=== PATIENT | female | born 1945 | race Caucasian/White ===

== ENCOUNTER 2017-02-17 08:35 | Day surgery (SDC) | payer OTHER ==
[~2017-02-17] VITALS: Ht 167.6 cm; Wt 83.5 kg
[2017-02-17] MEDS ORDERED: POLYMYXIN 500,000/BACIT.10,000 UNITS in NS IRR 1 L IR ONE (10:54)
[2017-02-17] MEDS ORDERED: LR 1,000 ML IV.SOLN IV ONE ×2 (11:35→12:07)
[2017-02-17] MEDS ORDERED: SEVOFLURANE 15 MIN GAS INH ONE ×2 (11:35→12:07)
[2017-02-17] MEDS ORDERED: MIDAZOLAM HCL 5 MG/5 ML VIAL IVP ONE ×2 (11:35→12:07)
[2017-02-17] MEDS ORDERED: fentaNYL CITRATE/PF 100 MCG/2 ML AMP IVP ONE ×2 (11:35→12:07)
[2017-02-17] MEDS ORDERED: PROPOFOL 200MG/ 20ML VIAL (DIPRIVAN) IV ONE ×2 (11:35→12:07)
[2017-02-17] MEDS ORDERED: KETOROLAC TROMETHAMINE 30 MG VIAL IVP ONE ×2 (11:35→12:07)
[2017-02-17] MEDS ORDERED: CEFAZOLIN 2 GM IVPB PREMIX 50 ML IV ONE ×2 (11:35→12:07)
[2017-02-17] MEDS ORDERED: NS 1000 ML BAG IV ONE (12:07)
[2017-02-17] MEDS ORDERED: METOCLOPRAMIDE HCL 10 MG/2 ML VIAL IVP ONE (12:07)
[2017-02-17] MEDS ORDERED: DEXAMETHASONE SOD PHOSPHATE 4 MG/ML VIAL IVP ONE (12:07)
[2017-02-17] MEDS ORDERED: LR 1,000 ML IV SCH (12:18)
[2017-02-17] MEDS ORDERED: HYDROmorphone 2 MG/ML VIAL IVP PRN ×2 (12:30)
[2017-02-17] MEDS ORDERED: HYDROmorphone 1 MG INJ. 1 MG/ML AMPUL IVP PRN (12:30)
[2017-02-17] MEDS ORDERED: MEPERIDINE HCL/PF 25 MG/ML DISP.SYRIN IVP PRN ×2 (12:30)
[2017-02-17] MEDS ORDERED: ONDANSETRON HCL 4 MG/2 ML VIAL IVP PRN (12:30)
[2017-02-17] MEDS ORDERED: HYDROmorphone 1 MG INJ. 1 MG/ML AMPUL ONE (14:11)
[2017-02-17 16:12] VITALS: BP_SYST 149
== END 2017-02-17 16:25 | disposition home or self-care (01) ==
LOC: SMU 08:35 → SDS 08:35
PROVIDERS: ATTEND Orthopaedic Surgery
DX: S82.842A Displaced bimalleolar fracture of left lower leg, initial encounter for closed fracture (principal); X58.XXXA Exposure to other specified factors, initial encounter; Y93.9 Activity, unspecified; Y92.89 Other specified places as the place of occurrence of the external cause; Y99.9 Unspecified external cause status; Z90.710 Acquired absence of both cervix and uterus; E78.2 Mixed hyperlipidemia; F32.9 Major depressive disorder, single episode, unspecified; M54.5 Low back pain; K21.9 Gastro-esophageal reflux disease without esophagitis
CPT/HCPCS: 27814; 76001; C1713 ×4; J0690; J1100; J1170; J1885; J2250; J2704; J2765; J3010; J7030; J7120